=== PATIENT | female | born 1965 | race African-American/Black ===

== ENCOUNTER 2018-01-16 05:57 | Inpatient (IN) | payer SELFPAY ==
[~2018-01-16] VITALS: Ht 149.9 cm; Wt 59.0 kg
[2018-01-16] MEDS ORDERED: SODIUM CHLORIDE 0.9% 1,000 ML IV ONE ×2 (08:38→10:30)
[2018-01-16] MEDS ORDERED: KETOROLAC 30MG/ML VIAL IV STA (08:38)
[2018-01-16] MEDS ORDERED: CEFAZOLIN 1000MG PREMIX 50 ML IV ONE (08:45)
[2018-01-16 09:29] LABS: BASOPHILS % 0.6 % (0.0-2.0); CHLORIDE 104 mEq/L (98-107); HEMATOCRIT. 40.4 % (36.0-48.0); HEMOGLOBIN. 13.3 g/dL (12.0-16.0); LYMPHOCYTES % 8.8 % (20.0-50.0); MEAN CORPUSCULAR HEMOGLOBIN 26.7 pg (28.0-32.0); MEAN CORPUSCULAR VOLUME 80.9 fL (81.0-99.0); MONOCYTES % 8.8 % (2.0-8.0); NEUTROPHILS % 80.8 % (40.0-76.0); RED CELL DISTRIBUTION WIDTH 18.7 % (11.6-14.6)
[2018-01-16 09:30] LABS: PROTHROMBIN TIME 9.9 sec (9.1-11.1)
[2018-01-16 09:33] LABS: PLATELET 1005 x1000/uL (130-400)
[2018-01-16] MEDS ORDERED: VANCOMYCIN 1 G PREMIX 200 ML IV SCH (09:45)
[2018-01-16] MEDS ORDERED: PIPERACILLIN/TAZ 3.375G PREMIX 50 ML IV ONE (09:45)
[2018-01-16 09:51] LABS: PLATELET ESTIMATE MARKEDLY INCREASED
[2018-01-16 10:29] LABS: CLARITY URINE CLEAR (CLEAR); COLOR URINE YELLOW (YELLOW); KETONES URINE NEGATIVE (NEGATIVE); LEUKOCYTE ESTERASE URINE NEGATIVE (NEGATIVE); NITRITE URINE NEGATIVE (NEGATIVE); OCCULT BLOOD URINE NEGATIVE (NEGATIVE); PROTEIN URINE NEGATIVE (NEGATIVE); SPECIFIC GRAVITY URINE 1.013 (1.005-1.030); UROBILINOGEN URINE 0.2 E.U./dL (0.2-1.0)
[2018-01-16 14:15] VITALS: BP 105/48
[2018-01-16 16:00] VITALS: BP 112/53
[2018-01-16] MEDS ORDERED: MORPHINE SULFATE 4 MG/ML CPJ (NOT FOR IM USE) IV PRN (16:15)
[2018-01-16] MEDS ORDERED: HYDROCODONE/ACETAMINOPHEN 5/325MG TABLET PO PRN (16:15)
[2018-01-16] MEDS ORDERED: ONDANSETRON HCL 4MG/2ML INJ IV PRN (16:15)
[2018-01-16] MEDS: PIPERACILLIN/TAZ 3.375G PREMIX 50 ML IV SCH (18:23)
[2018-01-16] MEDS: SODIUM CHLORIDE 0.9% 1,000 ML IV SCH (18:23)
[2018-01-16] MEDS ORDERED: INFLUENZA VIRUS VACCINE(AFLURIA) 0.5ML SYR IM ONE (19:30)
[2018-01-16 20:00] VITALS: BP 101/57
[2018-01-16] MEDS: VANCOMYCIN 750 MG PREMIX 150 ML IV SCH (22:57)
[2018-01-17] VITALS: BP 112/59
[2018-01-17] MEDS: PIPERACILLIN/TAZ 3.375G PREMIX 50 ML IV SCH ×3 (00:27→12:00)
[2018-01-17 04:00] VITALS: BP 110/60
[2018-01-17] MEDS: SODIUM CHLORIDE 0.9% 1,000 ML IV SCH (06:30)
[2018-01-17 07:10] LABS: HEMOGLOBIN. 12.6 g/dL (12.0-16.0); MEAN CORPUSCULAR HEMOGLOBIN 26.7 pg (28.0-32.0); MEAN CORPUSCULAR VOLUME 82.5 fL (81.0-99.0); MEAN PLATELET VOLUME 8.2 fl (7.4-10.4); PLATELET 869 x1000/uL (130-400); RED BLOOD CELL COUNT 4.73 mill/uL (4.2-5.4)
[2018-01-17 08:00] VITALS: BP 95/42
[2018-01-17 09:27] LABS: CHLORIDE 107 mEq/L (98-107)
[2018-01-17] MEDS: VANCOMYCIN 750 MG PREMIX 150 ML IV SCH (09:38)
[2018-01-17] MEDS ORDERED: INFLUENZA VIRUS VACCINE(AFLURIA) 0.5ML SYR IM ONE (10:00)
[2018-01-17 10:42] LABS: PLATELET ESTIMATE MARKEDLY INCREASED
[2018-01-17 12:00] VITALS: BP 140/70
[2018-01-17 13:14] VITALS: BP 98/56
== END 2018-01-17 14:25 | disposition home or self-care (01) | DRG 385 ==
LOC: ER 05:57 → 6EST 10:43 → ENRESERV 11:03
PROVIDERS: ADMIT Hospitalist; ATTEND Hospitalist
PROC: 0H9T0ZZ Drainage of Right Breast, Open Approach (ICD-10-PCS; principal; 2018-01-16)
DX: N61.1 Abscess of the breast and nipple (principal); D47.3 Essential (hemorrhagic) thrombocythemia
CPT/HCPCS: 36415; 71045; 80048; 83605; 84145; 87070; 90686; 96365; 96366; 96367; 96375; 99285; J0690; J1885; J2543; J3370; J7030